=== PATIENT | female | born 1990 | race Caucasian/White ===

== ENCOUNTER 2017-01-27 12:30 | Emergency (ER) | payer SELFPAY ==
[2017-01-27 12:46] VITALS: BP 144/86; PULSE 74; TEMP 98.1; BMI 45.3
[2017-01-27] MEDS ORDERED: PENICILLIN V POTASSIUM 500 MG TABLET PO ONE (13:29)
--- NOTE | 2017-01-27 13:34 | PDOC ---
History of Present Illness - General Chief Complaint: Chest Pain Stated Complaint: CHEST PAIN Time Seen by Provider: 01/27/17 12:51 - History of Present Illness Initial Comments: 01/27/17 17:33 Chief complaint: Toothache History of present illness: Patient complains of a broken tooth, upper right molar, with irritation and ulceration of the gums in this area. This has been persistent for several days, and she has been unable to arrange an appointment with her dentist. She woke up this morning with pain and stiffness of the right side of her neck radiating to the right anterior chest. Review of systems: No nausea, vomiting, diaphoresis, shortness of breath. Remainder of systems reviewed and found to be negative Past medical history: As noted in the record, there is a history of severe and significant anxiety. Social/family history reviewed and noncontributory Physical exam: Alert oriented 3 morbidly obese, but relatively cheerful and cooperative, although complaining of pain in the right cheek Afebrile, vital signs normal HEENT: There is a damaged tooth, upper right molar, with mild inflammation of the gingiva, and a few shallow ulcerations. There is no swelling of the cheek, cellulitis or induration of other parts of the face or oropharynx. The throat is clear. Neck supple without bruit mass or nodes. There is mild spasm of the right sternomastoid muscle, which is mildly tender to palpation Lungs clear CV regular without murmur rub or gallop Abdomen benign Neurological intact Impression: Tooth decay, gingivitis, no evidence of cellulitis of the face. Strain of the right sternomastoid muscle and right chest musculature. Plan: Antibiotics, analgesics, local care to the gingiva, and follow up with dentist practitioner as soon as possible. Patient fully ambulatory and in minimal discomfort/pain upon discharge with her sister to follow-up as directed. Past History - Past Medical History Allergies/Adverse Reactions: Allergies Allergy/AdvReac Type Severity Reaction Status Date / Time No Known Allergies Allergy Verified 01/27/17 12:40 Home Medications: Ambulatory Orders Dextroamphetamine/Amphetamine [Adderall 10 mg Tablet] 20 mg PO TID 09/29/16 Hydrocodone/Acetaminophen [Vicodin Hp 10-300 mg Tablet] 1 each PO QID 09/29/16 Alprazolam [Xanax] 1 mg PO BID 01/27/17 Guaifenesin Dm [Robitussin Dm] 10 ml PO Q8H PRN #120 ml 01/27/17 Ibuprofen 800 mg PO TID PRN #20 tablet 01/27/17 Penicillin V Potassium [Pen Vee K -] 500 mg PO QID #28 tablet 01/27/17 Psychiatric Problems: Yes (ADHD, ANXIETY) Other medical history: OBESITY, BACK PAIN FROM DISC HERNIATION - Surgical History Orthopedic Surgery: Yes (tendon repair of the foot) - Reproductive History (#): 1 Para: 0 Cervical CA: No Dysfunctional Uterine Bleeding: No Ectopic : No Endometrial CA: No Polycystic Ovaries: No Therapeutic (s) & number: No Tubal Ligation: No Spontaneous : 0 - Immunization History Immunization Up to Date: Yes - Psycho/Social/Smoking Cessation Hx Anxiety: No Suicidal Ideation: No Smoking Status: Yes Smoking History: Current every day smoker Have you smoked in the past 12 months: Yes Number of Cigarettes Smoked Daily: 4 Information on smoking cessation initiated: Yes 'Breaking Loose' booklet given: 01/27/17 Hx Alcohol Use: (occasional) Drug/Substance Use Hx: No Substance Use Type: None *Physical Exam - Vital Signs Last Vital Signs Temp Pulse Resp BP Pulse Ox 98.1 F 74 18 144/86 100 01/27/17 12:30 01/27/17 12:30 01/27/17 12:30 01/27/17 12:30 01/27/17 12:30 Medical Decision Making - Medical Decision Making 01/27/17 17:38 EKG performed. Normal sinus rhythm 80/m. Normal axes and intervals. No ST-T wave changes. Normal EKG *DC/Admit/Observation/Transfer Diagnosis at time of Disposition: Gingivitis, Tooth decayed - Discharge Dispostion Disposition: HOME Condition at time of disposition: Stable Admit: No - Prescriptions Prescriptions: Ibuprofen 800 mg PO TID PRN #20 tablet PRN Reason: Pain Penicillin V Potassium [Pen Vee K -] 500 mg PO QID #28 tablet Guaifenesin Dm [Robitussin Dm] 10 ml PO Q8H PRN #120 ml PRN Reason: Cough - Referrals Referrals: Mayur Walton MD [Primary Care Provider] - 3 days - Patient Instructions Printed Discharge Instructions: DI for Tooth Decay Additional Instructions: See your dentist as soon as possible. Decayed tooth must be removed to prevent serious infection. Take antibiotics as directed. Pain medication as needed. Rinse with warm salt water
--- NOTE | 2017-01-30 12:56 | EKG ---
Test Reason : Blood Pressure : / mmHG Vent. Rate : 080 BPM Atrial Rate : 080 BPM P-R Int : 116 ms QRS Dur : 096 ms QT Int : 390 ms P-R-T Axes : 026 019 029 degrees QTc Int : 449 ms NORMAL SINUS RHYTHM NORMAL ECG NO PREVIOUS ECGS AVAILABLE Confirmed by RAJWINDER NAYLOR MD ([id number]) on 01/30/2017 12:56:08 PM Referred By: DR BIRD Confirmed By:RAJWINDER NAYLOR MD
== END 2017-01-27 14:15 | disposition home or self-care (01) ==
LOC: FER 12:30
DX: K05.10 Chronic gingivitis, plaque induced (principal); K02.9 Dental caries, unspecified; F17.210 Nicotine dependence, cigarettes, uncomplicated; E66.9 Obesity, unspecified; Z68.42 Body mass index [BMI] 45.0-49.9, adult; F41.9 Anxiety disorder, unspecified; F90.9 Attention-deficit hyperactivity disorder, unspecified type
CPT/HCPCS: 93005; 99285-25

== ENCOUNTER 2019-08-01 11:53 | Emergency (ER) | payer OTHER ==
--- NOTE | 2019-08-01 11:59 | PDOC ---
History of Present Illness - General Chief Complaint: Pain Stated Complaint: BACK PAIN FOR 6 DAYS History Source: Patient Exam Limitations: No Limitations - History of Present Illness Initial Comments: 28 year old female with PMH chronic low back pain, ADHD presented to ED for right sided low back pain radiating down her leg x5 days. Pt reported when the pain began she was kneeling over a toilet, and then pulled her back. She reported she has been taking her usual Percocet TID without relief of her symptoms. She denied hx of DM, spinal injections, bowel/bladder incontinence, fever, neck stiffness, fall, genital numbness, n/v/d, dysuria. ROS General: denied fever, chills, generalized weakness. HEENT: denied sore throat, rhinorrhea, ear pain. Cardiovascular: denied chest pain, palpitations, syncope, diaphoresis. Respiratory: denied shortness of breath, cough, sputum production, hemoptysis. Gastrointestinal: denied abdominal pain, nausea, vomiting, diarrhea, constipation, blood in stool. Genitourinary: denied dysuria, increased urinary frequency, hematuria, urinary incontinence, flank pain. Back: admitted to back pain. Musculoskeletal: denied joint pain, muscle pain, joint swelling. Neurological: denied headache, dizziness, numbness, tingling, weakness. Integumentary: denied rash, laceration, abrasion. Hematologic/Lymphatic: denied bruising or bleeding. PE Constitutional: Well-nourished, Well-developed, appearing stated age. HEENT: head is normocephalic, atraumatic. EOMI. PERRLA. no posterior pharyngeal erythema. no tonsillar swelling or exudates bilaterally. uvula midline. no peritonsillar swelling, tenderness or abscess. no jaw tenderness or misalignment. Neck: supple. Full ROM. Cardiovascular: regular heart rhythm. no murmurs. no pericardial friction rub. Respiratory: clear to auscultation bilaterally. no crackles, rhonchi or wheezing. no stridor. Gastrointestinal: soft, nontender. normal bowel sounds. no rebound, guarding, masses. Back: no tenderness to midline c-spine, T-spine, or L-spine. no step offs. no low back tenderness. no rash, no bruising. negative straight leg testing bilaterally. ambulatory with antalgic gait. Extremities: peripheral pulses intact. no lower extremity edema. Neurological: CN 2-12 grossly intact. moves all four extremities. Psych: awake, alert, oriented x3. follows commands. answers questions appropriately. Past History - Past Medical History Allergies/Adverse Reactions: Allergies Allergy/AdvReac Type Severity Reaction Status Date / Time No Known Allergies Allergy Verified 08/01/19 11:54 Home Medications: Ambulatory Orders Dextroamphetamine/Amphetamine [Adderall 10 mg Tablet] 20 mg PO TID 09/29/16 Alprazolam [Xanax] 1 mg PO TID 01/27/17 Lidocaine 5% Patch [Lidoderm Patch -] 1 patch TP DAILY #4 patch 08/01/19 Oxycodone HCl/Acetaminophen [Percocet 10-325 mg Tablet] 1 tab PO TID 08/01/19 Psychiatric Problems: Yes (ADHD, ANXIETY) - Surgical History Orthopedic Surgery: Yes (tendon repair of the foot) - Reproductive History (#): 1 Para: 0 Cervical CA: No Dysfunctional Uterine Bleeding: No Ectopic : No Endometrial CA: No Polycystic Ovaries: No Therapeutic (s) & number: No Tubal Ligation: No Spontaneous : 0 - Immunization History Immunization Up to Date: Yes - Psycho Social/Smoking Cessation Hx Smoking Status: Yes Smoking History: Current every day smoker Have you smoked in the past 12 months: Yes Number of Cigarettes Smoked Daily: 4 'Breaking Loose' booklet given: 01/27/17 Hx Alcohol Use: (occasional) Drug/Substance Use Hx: No Substance Use Type: None Medical Decision Making - Medical Decision Making 28 year old female with above PMH presented to ED for exacerbation of chronic low back pain x5 days. Initial Vital Signs Temp Pulse Resp BP Pulse Ox 98.9 F 102 H 16 149/70 100 08/01/19 11:54 08/01/19 11:54 08/01/19 11:54 08/01/19 11:54 08/01/19 11:54 Afebrile. Mild tachycardia. No tachypnea. Mild hypertension. No hypoxia on room air. Labs ordered: urine Imaging ordered: none Medications ordered: valium 5 mg PO once, Lidoderm patch 08/01/19 14:26 Laboratory Results - last 24 hr 08/01/19 12:55 Urine HCG, Qual Negative Urine negative. Medications ordered: Toradol 60 mg IM once 08/01/19 15:08 Pt reported no improvement of pain. Medication ordered: Percocet 2 tabs once 08/01/19 15:35 Pt reported improvement of pain, ambulatory. Pt discharged. Pt reported her PCP is in the process of setting her up with a pain management doctor. She was advised to call the PCP and follow up. Discharge - Discharge Information Problems reviewed: Yes Clinical Impression/Diagnosis: Back pain Condition: Improved Disposition: HOME - Admission No - Additional Discharge Information Prescriptions: Lidocaine 5% Patch [Lidoderm Patch -] 1 patch TP DAILY #4 patch - Follow up/Referral - Patient Discharge Instructions Additional Instructions: Follow up with your primary care doctor within 3 days regarding your Emergency Room visit. Your care is not complete until you follow up. Take ibuprofen over the counter for pain, take 600 mg every 6-8 hours as needed. Take with food as this can irritate your stomach. Rest the affected area for the next 3-5 days. Apply lidoderm patch to affected area, follow instructions on label. If the prescription is too expensive, you can purchase patches over the counter that my be cheaper. Return to the Emergency Department for fever, weakness, numbness, tingling, vomiting, inability to walk, loss of bowel/bladder control or any other new, worsening or concerning symptoms. - Post Discharge Activity Work/Back to School Note: Back to Work
[2019-08-01 12:06] VITALS: BP 149/70; PULSE 102; TEMP 98.9; BMI 46.7
[2019-08-01] MEDS ORDERED: LIDOCAINE 5% TOPICAL PATCH TP ONE (12:32)
[2019-08-01] MEDS ORDERED: diazePAM 5 MG TABLET PO ONE (12:32)
--- NOTE | 2019-08-01 12:32 | PDOC ---
Attending Attestation - Resident Resident Name: Ysabel Abad - ED Attending Attestation I have performed the following: I have examined & evaluated the patient, The case was reviewed & discussed with the resident, I agree w/resident's findings & plan, Exceptions are as noted - HPI HPI: 08/01/19 12:27 28y F hx of sciatica, chronic back pain, adhd, presents with back pain for 6 days, started when she was cleaning the toilet, when she stood up had sudden sharp pain. The pain has been persistent, cosntant, 05/28, with radaition of tingling donw her R back. Pt notse pain is worse with movement. she has tried taking percocet, and many otc, supportive measures without improvement. pt denies any urinary or bowel incotninence, focal weakness, ivdu. No fever/ chills, abd pain, n/v. pt notse the pain is similar to her previous sciatica but has never lasted this long. Physicial exam: GENERAL: The patient is awake, alert, and fully oriented, Nontoxic - in no acute distress. EXTREMITIES: Normal range of motion, no edema. BACK: modeate tendeness in the R parapsinal lumbar back without midline ttp, erythema, fluctuance or erythema. NEUROLOGICAL: No facial assymetry, Normal speech, PSYCH: Normal mood, normal affect. SKIN: Warm, Dry, normal turgor, no signs of cord compression/fx richa obtain UA to r/o preg will give toradol/valium will reasess - Physicial Exam PE: 08/02/19 18:11 see above - Medical Decision Making pt feeling improved at dc will dc with supportive care return precautions were dsicussed
[2019-08-01] MEDS ORDERED: LIDOCAINE 5% TOPICAL PATCH ONE (12:57)
[2019-08-01] MEDS ORDERED: diazePAM 5 MG TABLET ONE (12:57)
[2019-08-01] MEDS ORDERED: KETOROLAC TROMETHAMINE 60 MG/2 ML VIAL IM ONE (14:04)
[2019-08-01] MEDS ORDERED: KETOROLAC TROMETHAMINE 60 MG/2 ML VIAL ONE (14:07)
[2019-08-01] MEDS ORDERED: LIDOCAINE PATCH REMOVAL MC SCH (22:00)
== END 2019-08-01 15:43 | disposition home or self-care (01) ==
LOC: FER 11:53
PROC: 3E0233Z Introduction of Anti-inflammatory into Muscle, Percutaneous Approach (ICD-10-PCS; principal; 2019-08-01)
DX: M54.9 Dorsalgia, unspecified (principal); F17.210 Nicotine dependence, cigarettes, uncomplicated; F90.9 Attention-deficit hyperactivity disorder, unspecified type; F41.9 Anxiety disorder, unspecified
CPT/HCPCS: 84703; 99282-25